=== PATIENT | male | born 1990 | race American Indian/Alaskan Native ===

== ENCOUNTER 2021-01-02 22:14 | Emergency (ER) | payer SELFPAY | END 2021-01-02 23:00 | disposition left against medical advice (07) | LOC: ED 22:14 | DX: J02.9 Acute pharyngitis, unspecified (principal); Z53.21 Procedure and treatment not carried out due to patient leaving prior to being seen by health care provider ==

== ENCOUNTER 2021-01-06 11:51 | Emergency (ER) | payer SELFPAY ==
--- NOTE | 2021-01-06 12:32 | Event Note ---
ED Screening Note Date of service: 01/06/21 Time: 12:30 ED Screening Note: Patient here with complaints of sore throat Peritonsillar abscess and hot potato voice noted on exam This initial assessment/diagnostic orders/clinical plan/treatment(s) is/are subject to change based on patients health status, clinical progression and re- assessment by fellow clinical providers in the ED. Further treatment and workup at subsequent clinical providers discretion. Patient/guardian urged not to elope from the ED as their condition may be serious if not clinically assessed and managed. Initial orders include: CT soft tissue neck Labs
[2021-01-06 13:46] LABS: Basophils % (Auto) 0.1 % (0.0-1.8); Eosinophils # (Auto) 0.1 K/mm3 (0.0-0.4); Eosinophils % (Auto) 0.8 % (0.0-4.3); Hematocrit 43.6 % (35.5-45.6); Hemoglobin 14.5 gm/dl (11.8-15.2); Lymphocytes % (Auto) 11.7 % (13.4-35.0); Mean Corpuscular HGB Conc 33 % (32-34); Mean Corpuscular Volume 83 fl (84-94); Monocytes # (Auto) 2.3 K/mm3 (0.0-0.8); Monocytes % (Auto) 13.3 % (0.0-7.3); Platelet Count 350 K/mm3 (140-440); Red Blood Count 5.23 M/mm3 (3.65-5.03); Red Cell Distribution Width 13.2 % (13.2-15.2)
[2021-01-06 14:02] LABS: Blood Urea Nitrogen 6 mg/dL (9-20); Calcium 9.7 mg/dL (8.4-10.2); Hemolysis Index 3
[2021-01-06 14:05] LABS: BUN/Creatinine Ratio 10
[2021-01-06] MEDS ORDERED: dexAMETHasone 20 MG/5 ML VIAL IV ONE ×2 (15:21→16:56)
--- NOTE | 2021-01-06 16:39 | Cat Scan Report ---
NECK CT 01/06/2021 HISTORY: Peritonsillar abscess FINDINGS: Contrast enhanced CT images of the soft tissues of the neck were obtained. Images are evalu ated in the axial, coronal, and sagittal plane. There is prominent tonsillar lymphoid hyperplasia bilaterally, more pronounced on the right. On the r ight, there is evidence of peritonsillar abscess. This lobulated fluid density collection measures ap proximately 5 cm in craniocaudal length, with an axial diameter of approximately 2.7 cm. There is que stionable smaller 1 cm area of hypoattenuation in the left peritonsillar region is well. Prominent reactive adenopathy is present bilaterally. Jugular digastric lymph nodes measuring up to 4 cm in length are present, the largest of which is on the left side. Epiglottis is unremarkable. IMPRESSION: Prominent lymphoid hyperplasia in the nasopharynx and tonsillar region, more pronounced o n the right. 4 cm right peritonsillar abscess. Possible 1 cm left peritonsillar abscess. Pronounced upper cervical adenopathy. All CT scans at this location are performed using dose reduction to ALARA by means of automated expos ure control. Signer Name: Pepe Gibsb MD Signed: 01/06/2021 4:34 PM Workstation Name: [id number]
[2021-01-06] MEDS ORDERED: SODIUM CHLORIDE 0.9% 1000 ML 1,000 ML IV ONE (16:55)
[2021-01-06] MEDS ORDERED: CLINDAMYCIN 600 MG/50 mL 600 MG/50 ML BAG IV ONE (16:56)
--- NOTE | 2021-01-06 17:07 | Emergency Department Report ---
ED ENT HPI - General Chief complaint: Sore Throat Stated complaint: SORE THROAT/FEVER Time Seen by Provider: 01/06/21 12:29 Source: patient Mode of arrival: Ambulatory Limitations: No Limitations - History of Present Illness Initial comments: 30 y/o male comes in for 5 day history of sore throat. Has been taking Ib and warm salt water gargles. Admits to difficulties in swallowing. Splitting out brown secretions. No PMH no current medications and NKDA. No N/V or D. No SOB. No GARCIA or neck pain. MD complaint: sore throat, difficulty swallowing Onset/Timin -: days(s) Location: throat Severity scale (0 -10): 8 Quality: stabbing, sharp Consistency: constant Improves with: none Worsens with: swallowing Associated Symptoms: sore throat - Related Data Previous Rx's Medication Instructions Recorded Last Taken Type Naproxen [Naprosyn] 500 mg PO BID #20 tablet 05/23/14 Unknown Rx Allergies Allergy/AdvReac Type Severity Reaction Status Date / Time No Known Allergies Allergy Verified 05/23/14 19:19 ED Dental HPI - General Chief complaint: Sore Throat Stated complaint: SORE THROAT/FEVER Time Seen by Provider: 01/06/21 12:29 Source: patient Mode of arrival: Ambulatory Limitations: No Limitations - Related Data Previous Rx's Medication Instructions Recorded Last Taken Type Naproxen [Naprosyn] 500 mg PO BID #20 tablet 05/23/14 Unknown Rx Allergies Allergy/AdvReac Type Severity Reaction Status Date / Time No Known Allergies Allergy Verified 05/23/14 19:19 ED Review of Systems ROS: Stated complaint: SORE THROAT/FEVER Other details as noted in HPI Comment: All other systems reviewed and negative ED Past Medical Hx - Past Medical History Hx Hypertension: No Hx CVA: No Hx Heart Attack/AMI: No Hx Congestive Heart Failure: No Hx Diabetes: No Hx Deep Vein Thrombosis: No Hx Pulmonary Embolism: No Hx GERD: No Hx Liver Disease: No Hx Renal Disease: No Hx Sickle Cell Disease: No Hx Arthritis: No Hx Headaches / Migraines: No Hx Seizures: No Hx Kidney Stones: No Hx Psychiatric Treatment: No Hx Asthma: No Hx COPD: No Hx Tuberculosis: No Hx Dementia: No Hx HIV: No - Surgical History Hx Coronary Stent: No Hx Open Heart Surgery: No Hx Pacemaker: No Hx Internal Defibrillator: No Hx Cholecystectomy: No Hx Appendectomy: No Hx Breast Surgery: No - Social History Smoking Status: Current Every Day Smoker Substance Use Type: Alcohol - Medications Home Medications: Home Medications Medication Instructions Recorded Confirmed Last Taken Type Naproxen [Naprosyn] 500 mg PO BID #20 tablet 05/23/14 Unknown Rx ED Physical Exam - General Limitations: No Limitations General appearance: alert, in no apparent distress - Head Head exam: Present: atraumatic, normocephalic - ENT ENT exam: Present: normal external ear exam, other (muffled voice, hot potato voice) - Expanded ENT Exam Expanded Throat exam: Positive: tonsillar erythema, tonsillomegaly, R peritonsillar mass, L peritonsillar mass - Neck Neck exam: Present: tenderness, full ROM, lymphadenopathy - Respiratory Respiratory exam: Present: normal lung sounds bilaterally. Absent: accessory muscle use - Cardiovascular Cardiovascular Exam: Present: regular rate - GI/Abdominal GI/Abdominal exam: Present: soft, normal bowel sounds - Extremities Exam Extremities exam: Present: normal inspection, full ROM - Back Exam Back exam: Present: normal inspection - Neurological Exam Neurological exam: Present: alert, oriented X3, normal gait - Psychiatric Psychiatric exam: Present: normal affect, normal mood - Skin Skin exam: Present: warm, dry, intact, normal color. Absent: rash ED Course Vital Signs 01/06/21 01/06/21 01/06/21 12:25 17:56 18:46 Temperature 98.6 F Pulse Rate 105 H 94 H 86 Respiratory 22 15 17 Rate Blood Pressure 136/94 148/101 O2 Sat by Pulse 99 97 99 Oximetry - Consultations Consultation #1: 01/06/21 18:[address] Rodríguez ER attending at [facility] he is excepted patient ER to ER. Patient will be transferred for via EMS. 01/06/21 18:[address] Leahy ear nose and throat at [facility] and she accepted robi ent request that he goes ER to ER transfer. ED Medical Decision Making - Lab Data Result diagrams: 01/06/21 13:18 01/06/21 13:18 - Radiology Data Radiology results: report reviewed [facility] [address] [place] [address] Cat Scan Report Signed Patient: LAINEY BROSUSARD MR#: [id number] : 1990 Acct:[id number] Age/Sex: 30 / M ADM Date: 01/06/21 Loc: ED Attending Dr: Ordering Physician: KAREN ORELLANA Date of Service: 01/06/21 Procedure(s): CT neck w con Accession Number(s): [id number] cc: KAREN ORELLANA NECK CT 01/06/2021 HISTORY: Peritonsillar abscess FINDINGS: Contrast enhanced CT images of the soft tissues of the neck were obtained. Images are evaluated in the axial, coronal, and sagittal plane. There is prominent tonsillar lymphoid hyperplasia bilaterally, more pronounced on the right. On the right, there is evidence of peritonsillar abscess. This lobulated fluid density collection measures approximately 5 cm in craniocaudal length, with an axial diameter of approximately 2.7 cm. There is questionable smaller 1 cm area of hypoattenuation in the left peritonsillar region is well. Prominent reactive adenopathy is present bilaterally. Jugular digastric lymph nodes measuring up to 4 cm in length are present, the largest of which is on the left side. Epiglottis is unremarkable. IMPRESSION: Prominent lymphoid hyperplasia in the nasopharynx and tonsillar region, more pronounced on the right. 4 cm right peritonsillar abscess. Possible 1 cm left peritonsillar abscess. Pronounced upper cervical adenopathy. All CT scans at this location are performed using dose reduction to ALARA by means of automated exposure control. Signer Name: Pepe Gibbs MD Signed: 01/06/2021 4:34 PM Workstation Name: [id number] Transcribed By: AO Dictated By: Pepe Gibbs MD Electronically Authenticated By: Pepe Gibbs MD Signed Date/Time: 01/06/21 1634 DD/ 1629 TD/TT: Print Cancel - Medical Decision Making 30 y/o male comes in for 5 day history of sore throat. Has been taking Ib and warm salt water gargles. Admits to difficulties in swallowing. Splitting out brown secretions. No PMH no current medications and NKDA. No N/V or D. No SOB. No GARCIA or neck pain. Discussed finding with attending Dr. Guerrier. Will start Normal saline, dexamethasone and clindamycin 600mg IV. Spoke with transport center to transfer to [place]. Critical care attestation.: If time is entered above; I have spent that time in minutes in the direct care of this critically ill patient, excluding procedure time. ED Disposition Condition: Stable Referrals: PRIMARY CARE,MD [Primary Care Provider] - 3-5 Days
--- NOTE | 2021-01-06 18:24 | Event Note ---
Date of service: 01/06/21 Face to Face: The patient was evaluated in the emergency department for symptoms described in the history of present illness. He/she was evaluated in the context of the global COVID-19 pandemic, which necessitated consideration that the patient might be at risk for infection with the virus that causes COVID-19. Institutional protocols and algorithms that pertain to the evaluation of patients at risk for COVID-19 are in a state of rapid change based on information released by regulatory bodies including the CDC and federal and state organizations. These policies and algorithms were followed during the patient's care in the emergency department. Please note that these policies, procedures and recommendations changed on a rapid basis. Patient is a 25-year-old male, with high potato voice and dysphonia, without stridor, saturating 100% on room air, able to speak in full sentences, found to be septic from peritonsillar abscesses, right and left. Patient is protecting his airway at this time. He is hemodynamically stable at this time. Patient has an emergent condition at this time which cannot be definitively managed at this hospital, as we do not have ENT/otolaryngology available for intervention and evaluation. Patient protecting airway at this time, and is suitable at this time for transport and emergency ambulance to [facility], where by my physician assistant track and field coach colleague has discussed the case with both otolaryngology, and emergency medicine attending. Patient accepted for transfer to this hospital for definitive management, which we are not able to provide at this hospital, secondary to lack of ENT services. Patient has been given fluids, he has been made n.p.o. status, he will be given steroids, and antibiotics, and he is suitable at this time for transportation for definitive management. Vital Signs 01/06/21 12:25 Temperature 98.6 F Pulse Rate 105 H Respiratory 22 Rate Blood Pressure 136/94 O2 Sat by Pulse 99 Oximetry Lab Results 01/06/21 01/06/21 01/06/21 Range/Units 13:18 13:18 14:42 WBC 17.3 H (4.5-11.0) K/mm3 RBC 5.23 H (3.65-5.03) M/mm3 Hgb 14.5 (11.8-15.2) gm/dl Hct 43.6 (35.5-45.6) % MCV 83 L (84-94) fl MCH 28 (28-32) pg MCHC 33 (32-34) % RDW 13.2 (13.2-15.2) % Plt Count 350 (140-440) K/mm3 Lymph % (Auto) 11.7 L (13.4-35.0) % [place] % (Auto) 13.3 H (0.0-7.3) % Eos % (Auto) 0.8 (0.0-4.3) % Baso % (Auto) 0.1 (0.0-1.8) % Lymph # (Auto) 2.0 (1.2-5.4) K/mm3 [place] # (Auto) 2.3 H (0.0-0.8) K/mm3 Eos # (Auto) 0.1 (0.0-0.4) K/mm3 Baso # (Auto) 0.0 (0.0-0.1) K/mm3 Seg Neutrophils % 74.1 H (40.0-70.0) % Seg Neutrophils # 12.8 H (1.8-7.7) K/mm3 Sodium 136 L (137-145) mmol/L Potassium 3.8 (3.6-5.0) mmol/L Chloride 95.4 L (98-107) mmol/L Carbon Dioxide 30 (22-30) mmol/L Anion Gap 14 mmol/L BUN 6 L (9-20) mg/dL Creatinine 0.6 L (0.8-1.3) mg/dL Estimated GFR > 60 ml/min BUN/Creatinine Ratio 10 % Glucose 94 (75-100) mg/dL Lactic Acid 1.10 (0.7-2.0) mmol/L Calcium 9.7 (8.4-10.2) mg/dL NECK CT 01/06/2021 HISTORY: Peritonsillar abscess FINDINGS: Contrast enhanced CT images of the soft tissues of the neck were obtained. Images are evaluated in the axial, coronal, and sagittal plane. There is prominent tonsillar lymphoid hyperplasia bilaterally, more pronounced on the right. On the right, there is evidence of peritonsillar abscess. This lobulated fluid density collection measures approximately 5 cm in craniocaudal length, with an axial diameter of approximately 2.7 cm. There is questionable smaller 1 cm area of hypoattenuation in the left peritonsillar region is well. Prominent reactive adenopathy is present bilaterally. Jugular digastric lymph nodes measuring up to 4 cm in length are present, the largest of which is on the left side. Epiglottis is unremarkable. IMPRESSION: Prominent lymphoid hyperplasia in the nasopharynx and tonsillar region, more pronounced on the right. 4 cm right peritonsillar abscess. Possible 1 cm left peritonsillar abscess. Pronounced upper cervical adenopathy. All CT scans at this location are performed using dose reduction to ALARA by means of automated exposure control. Signer Name: Pepe Gibbs MD Signed: 01/06/2021 3:34 PM Workstation Name: [id number]
[2021-01-06 21:44] VITALS: BP 156/89
== END 2021-01-06 22:00 | disposition other institution (70) ==
LOC: ED 11:51
DX: J02.9 Acute pharyngitis, unspecified (principal); R50.9 Fever, unspecified; F17.200 Nicotine dependence, unspecified, uncomplicated; Z79.899 Other long term (current) drug therapy
CPT/HCPCS: 36415; 70491; 80048; 82140; 85025; 96365; 96375; 99285; J1100; J7030; Q9967